=== PATIENT | female | born 1970 | race Caucasian/White ===

== ENCOUNTER 2024-05-04 07:23 | Emergency (ER) | payer MEDICARE, MEDICAID, SELFPAY ==
[2024-05-04] VITALS (13 sets, daily range): BP systolic 104–143; BP diastolic 63–109; BMI 32.2
--- NOTE | 2024-05-04 07:58 | ED.GENMED ---
History of Present Illness
General
Chief Complaint: Musculo-Skeletal Complaint
Source: patient and ambulance crew
Exam Limitations: none
Time Seen by Provider: 05/04/24 07:29
Nursing documentation reviewed up to this point in time: agreed with
History of Present Illness
History of Present Illness:
53-year-old female with past medical history of previous TBI GERD diabetes anxiety bipolar disorder presenting to the emergency department with multiple concerns. Main concern is a potential patellar dislocation to the left knee that occurred from
a minor fall 2 weeks ago. She noticed that it moved out of place but has not sought any medical attention since. She also claims she has had worsening right lower quadrant abdominal pain and decreasing bowel movements. She she is concerned of a
hernia. She also concerned there may be an infection to her left great toe. Denies any fever chest pain shortness of breath.
Past History
Past History
ED Past Medical History: HTN and Psychiatric
ED Past Surgical History: None
Social History
Tobacco: Non-smoker
Alcohol: None
Drug: None
Living: with family
Review of Systems
Review of Systems
Allergies reviewed?: Yes
All Other Systems: ROS reviewed and negative except as documented in HPI and ROS
Phy Exam
Physical Exam
Physical Exam:
GENERAL: Alert , in no apparent distress
EYE: pupils equal and reactive
NECK: Supple, no significant adenopathy.
ENT: o/p clr, mmm.
CARDIAC: Regular rate and rhythm .
LUNGS: Clear breath sounds bilaterally, no acute respiratory distress, no wheezes/rales/rhonchi
ABDOMEN: Right lower quadrant abdominal pain the palpation otherwise soft abdomen no r/g, no cvat
NEUROLOGICAL: Alert and oriented, no focal neuro deficits
SKIN: Minor redness and swelling to the left great toe just proximal to the nailbed. No drainage no swelling over the joint good range of motion. Warm and dry, skin intact.
MUSCULOSKELETAL: Left knee with a patellar displacement to the lateral aspect of the knee. Able to range fully with discomfort no edema, well perfused.
PSYCH: Normal and appropriate interaction.
Course
Orders/Labs/Results
Orders:
Orders
05/04/24 07:53
CT Abd/Pel (IV only)-DH only Urgent
Comment:
Reason For Exam: rlq abd pain
CR Foot - Left Min 3 Views Urgent
Comment:
Reason For Exam: great toe infection
CR Knee - Left 4 Or More View* Urgent
Comment:
Reason For Exam: patella displacement
CR Knee- Right 4 Or More View* Urgent
Comment:
Reason For Exam: right knee pain
05/04/24 08:14
CBC/With Diff [Complete Blood Count/With Diff] Urgent
CMP [Comprehensive Metabolic Panel] Urgent
05/04/24 09:41
Urinalysis Reflex To Culture Urgent
Date Specimen was Collected: 05/04/24
Time Specimen was Collected: 09:39
Urine Microscopic Reflex Cult Urgent
05/04/24 10:33
Diazepam [Valium] 5 mg PO NOW STA
HYDROmorphone [Dilaudid] 1 mg IV NOW STA
05/04/24 11:07
Quetiapine Fumarate [Seroquel] 50 mg PO NOW STA
05/04/24 11:58
Divalproex Sodium [Depakote Sprinkle] 250 mg PO NOW STA
05/04/24 12:20
HYDROmorphone [Dilaudid] 0.5 mg IV NOW STA
05/04/24 12:53
Lower Ext Left wo Contrast CT [CT Lower Ext W/o Iv Cont Lt] Urgent
Comment:
Reason For Exam: left knee dislocation
Abnormal Lab Results
05/04/24 05/04/24
08:14 09:41
WBC 13.1 H 10^3/uL
(4.8-10.8)
MPV 11.0 H fL
(7.4-10.4)
Absolute Neuts (auto) 10.5 H 10^3/uL
(1.4-6.5)
Absolute Monos (auto) 0.9 H 10^3/uL
(0.1-0.6)
Neutrophils % 80.4 H %
(42.2-75.2)
Lymphocytes % 11.5 L %
(20.5-51.1)
Carbon Dioxide 18 L mmol/L
(22-30)
BUN 20 H mg/dl
(7-17)
Glucose 131 H mg/dl
(70-99)
Urine Ketones 3+ A
(Negative)
Leukocyte Esterase Rfl Trace A
(Negative)
Urine RBC 7-10 A /HPF
(0-2)
Urine Bacteria (Reflex) Few A
(Negative)
05/04/24 08:14
05/04/24 08:14
Vital Signs
Initial and Last Documented VS:
Initial Vital Signs
Temp Pulse Resp BP Pulse Ox
98.3 F 118 18 119/93 95
05/04/24 07:29 05/04/24 07:29 05/04/24 07:29 05/04/24 07:29 05/04/24 07:29
Last Documented Vital Signs
Temp Pulse Resp BP Pulse Ox
98.3 F 107 18 120/81 95
05/04/24 07:29 05/04/24 10:46 05/04/24 07:29 05/04/24 12:13 05/04/24 13:20
Procedures
Joint/Fracture Reduction
Left Knee:
Indication for procedure:: Patella dislocation
Procedure completed by: Myself
Consent form signed: No
If no, reason: Emergency procedure
Joint reduced: no treatment at this time (Patient was given IV pain medications and benzodiazepine prior)
Injury was: closed
Further treatement: needs further treatment
Post reduction exam: stable
Capillary Refill: normal
Normal distal neurovascular exam?: Yes
Peripheral Pulses: dorsalis pedis (left): 2+
Additional information:
Reduction was unsuccessful
MDM/Problems Addressed
MDM/Problems Addressed:
53-year-old female presenting with multiple concerns main concern is patellar dislocation of the left knee occurred 2 weeks ago ongoing since. Additionally had worsening right lower quadrant abdominal pain she believes she has a hernia does have
reproducible pain to palpation. Additionally is concerned there is a potential infection to the left great toe. On examination the left great toe does have what appears to be healing. She claims that it drained some pus a few days ago. No
systemic she is to be localized to a very small area roughly 1 cm diameter. Plan to treat with oral antibiotics at this point considering ongoing redness and swelling. No ongoing fluctuance or induration. Additionally plan for x-rays of the knee
as well as CT scan to the abdomen due to her abdominal pain to the right lower quadrant. X-rays confirming the patella dislocation of the left side unable to reduce this after multiple times Case discussed with orthopedics recommending CT scan and
outpatient follow-up for repair. Otherwise abdominal CT scan showing concerning findings of patient's sigmoid: Potentially concerning for carcinoma. Patient was notified of these results there was a discussion with colorectal surgery to ensure
close follow-up. Otherwise she will also be given information for podiatry follow-up for the infection to her left great toe. Stable for outpatient management return precautions given.
*Critical Care Note
Total Time (30-74mins, 75-104mins- exclusive of procedures): Not Applicable
ED Attending Note
-
Portions of this chart may have been created with voice recognition software.� Occasional wrong word or��sound alike� substitutions may have occurred due to the inherent limitations of voice recognition software.
Discharge Plan
Departure
Patient Disposition: Home (Routine Discharge)
Date of Disposition: 05/04/24
Time of Disposition: 15:09
Patient with high blood pressure during this ER visit?: Yes
Condition: Good
Covid-19: Not Applicable
Discharge Problem:
Sigmoid thickening, Dislocation of patella, left, closed, Infection of toe
Instructions: Colon and rectal cancer screening, Dislocated Kneecap (DC)
Prescriptions:
New
cephalexin 500 mg capsule
500 mg PO QID 7 Days Qty: 28 0RF
No Action
quetiapine [Seroquel] 50 MG tablet
50 mg PO NOON
Patient Comments:
medication list from [facility] dated 05/12/12
quetiapine [Seroquel] 400 MG tablet
400 mg PO HS
Patient Comments:
medication list from [facility] dated 05/12/12
cyclobenzaprine 10 mg tablet
10 mg PO TID@1200,1800,2200
divalproex 250 mg tablet,delayed release (DR/EC)
250 mg PO TID
clonazepam 0.5 mg tablet
0.5 mg PO QID
Patient Comments:
05/04/2024: last filled 04/20/24, 120 tabs for 30 days from [facility]
meloxicam 7.5 mg tablet
7.5 mg PO QPM
metformin 1,000 mg tablet
1,000 mg PO BID@0800,1700
ferrous sulfate 325 mg (65 mg iron) tablet,delayed release (DR/EC)
325 mg PO DAILY
lisinopril 2.5 mg tablet
2.5 mg PO DAILY
oxycodone 10 mg tablet
20 mg PO QID
Patient Comments:
05/04/2024: last filled 04/19/24, 240 tabs for 30 days from [facility]
cholecalciferol (vitamin D3) 50 mcg (2,000 unit) Tablet
50 mcg PO NOON
Referrals:
Orion Cornelius MD [Active] - Follow up in 5-7 days
Diony Briceño MD [Family Provider] -
Theresa Rodriguez DPM [Specified Professional Personl] - Follow up in 5-7 days
Jovani Boswell MD [Active] - Follow up in 5-7 days
Activity Restrictions/Additional Instructions:
You came to the emergency department today with concerns of multiple issues. You had a patella dislocation that we are not able to reduce. It is very important follow-up close with orthopedics for further assessment of this. Additionally on CT
scan of the abdomen you are found to have thickening of your sigmoid colon. You will need very close follow-up with colorectal surgery for further assessment to ensure this is not cancer. Otherwise you do have an infection to your left great toe.
Please keep the area clean covered and take Keflex 4 times daily for the next 7 days. Please follow closely with the foot doctor. Return to the emergency department for any worsening, new or concerning symptoms.
Interventions
Interventions:
*Risk Screen - Suicide Last Done: 05/04/24 07:36
*General Assessment Last Done: 05/04/24 07:36
*Neglect/Abuse Screening Last Done: 05/04/24 07:36
*ED COVID-19 Vaccine History Last Done: 05/04/24 07:36
ED-Musculoskeletal Assessment Last Done: 05/04/24 08:54
Discharge Date and Time
Print Language: MALAGASY
[2024-05-04 08:30] LABS: % Basophils 0.2 % (0-2); % Eosinophils 0.5 % (0-6); % Immature Granulocytes 0.3 % (0-0.5); % Lymphocytes 11.5 % (20.5-51.1); % Monocytes 7.1 % (1.7-9.3); % Neutrophils 80.4 % (42.2-75.2); Absolute Eosinophils 0.1 10^3/uL (0-0.7); Absolute Lymphocytes 1.5 10^3/uL (1.2-3.4); Absolute Monocytes 0.9 10^3/uL (0.1-0.6); Absolute Neutrophils 10.5 10^3/uL (1.4-6.5); Hematocrit 43.7 % (37.0-47.0); Mean Corp Hgb Conc. 34.3 g/dL (33.0-37.0); Mean Corpuscular Hgb 29.8 pg (27.0-31.0); Mean Corpuscular Volume 86.9 fL (81.0-99.0); Nucleated Red Blood Cells % 0 %; Platelet Count 278 10^3/uL (130-400); Red Blood Cell Count 5.03 10^6/uL (4.20-5.40); Red Cell Dist. Width 12.4 % (11.5-14.5); White Blood Cell Count 13.1 10^3/uL (4.8-10.8)
[2024-05-04 08:34] LABS: ALT (SGPT) 21 U/L (0-35); AST (SGOT) 27 U/L (14-36); Albumin 4.8 g/dl (3.5-5.0); Alkaline Phosphatase 81 U/L (38-126); Blood Urea Nitrogen 20 mg/dl (7-17); Calcium 9.8 mg/dl (8.4-10.2); Carbon Dioxide 18 mmol/L (22-30); Chloride 102 mmol/L (98-107); Estimated Creatinine Clearance 112 ml/min; Glucose 131 mg/dl (70-99); Potassium 3.7 mmol/L (3.5-5.1); Sodium 140 mmol/L (135-145); Total Bilirubin 0.4 mg/dl (0.2-1.3); Total Protein 7.1 g/dl (6.3-8.2); eGFR > 60.00
[2024-05-04 09:58] LABS: Urine Albumin Negative (Neg - Trace); Urine Bilirubin Negative (Negative); Urine Character Clear (Clear); Urine Color Yellow; Urine Glucose Negative (Negative); Urine Ketone 3+ (Negative); Urine Leukocyte Trace (Negative); Urine Nitrite Negative (Negative); Urine Occult Blood Negative (Negative); Urine Specific Gravity 1.015 (<1.030); Urine Urobilinogen Negative (Neg - 1+)
[2024-05-04 10:16] LABS: Urine Bacteria Few (Negative); Urine White Cell 0-2 /HPF (0-5)
[2024-05-04] MEDS: VALIUM 5 MG PO (10:41)
[2024-05-04] MEDS: DILAUDID 1 MG IV (10:41)
[2024-05-04] MEDS: DEPAKOTE SPRINKLE 250 MG PO (12:06)
[2024-05-04] MEDS: SEROQUEL 50 MG PO (12:06)
[2024-05-04] MEDS: DILAUDID 0.5 MG IV (12:38)
[2024-05-04] MEDS: KEFLEX 500 MG PO (15:28)
== END 2024-05-04 16:55 | disposition home or self-care (01) ==
LOC: EMR 07:23
PROVIDERS: Physician Assistant; EMERGENCY PHYSICIAN Emergency Medicine; FAMILY PHYSICIAN Family Medicine
DX: M25.562 Pain in left knee (principal); R10.31 Right lower quadrant pain; I10 Essential (primary) hypertension; S83.005A Unspecified dislocation of left patella, initial encounter; X58.XXXA Exposure to other specified factors, initial encounter; L08.9 Local infection of the skin and subcutaneous tissue, unspecified; E11.9 Type 2 diabetes mellitus without complications; F31.9 Bipolar disorder, unspecified; F41.9 Anxiety disorder, unspecified; K21.9 Gastro-esophageal reflux disease without esophagitis; Z87.820 Personal history of traumatic brain injury
CPT/HCPCS: 99282; 96374; 96376; 73564; 73630; 73700; 74177; 80053; 81003; 81015; 85025; Q9967